=== PATIENT | female | born 1985 | race Caucasian/White ===

== ENCOUNTER 2018-08-26 10:37 | Inpatient (IN) | payer BC ==
[~2018-08-26] VITALS: Ht 175.3 cm; Wt 126.6 kg
[2018-08-26] VITALS (59 sets, daily range): BP systolic 104–137; BP diastolic 56–86
--- NOTE | 2018-08-26 10:45 | NUR ---
Arrived to unit via ambulation accompanied by s.o. Pt here for induction of labor due to elevated blood pressure. Wt obtained and to room 319. gowned and to bed. Oriented to room, call light and surroundings. plan of care reviewed with pt.
[2018-08-26] MEDS ORDERED: OXYTOCIN/NORMAL SALINE 500 ML IV SCH ×2 (11:38→20:50)
[2018-08-26] MEDS ORDERED: AMPICILLIN FOR IV USE 2,000 MG VIAL ONE (11:39)
[2018-08-26] MEDS ORDERED: WATER (STERILE) FOR INJECTION 20 ML ONE (11:40)
[2018-08-26] MEDS ORDERED: LIDOCAINE 1% INJ 20 ML 20 ML VIAL INJ PRN (11:45)
[2018-08-26 11:46] LABS: BASOPHILS # (AUTO) 0.1 10^3/uL (0.0-0.1); BASOPHILS % (AUTO) 0 % (0-10); EOSINOPHILS # (AUTO) 0.2 10^3/uL (0.0-0.3); EOSINOPHILS % (AUTO) 2 % (0-10); HEMATOCRIT 34 % (35-52); HEMOGLOBIN 10.5 G/DL (11.5-16.0); LYMPHOCYTES % (AUTO) 21 % (12-44); MEAN CORPUSCULAR HEMOGLOBIN 22 PG (25-34); MEAN CORPUSCULAR HGB CONC 31 G/DL (32-36); MEAN CORPUSCULAR VOLUME 71 FL (80-99); MEAN PLATELET VOLUME 9.5 FL (7.4-10.4); MONOCYTES # (AUTO) 1.2 X 10^3 (0.0-1.0); MONOCYTES % (AUTO) 8 % (0-12); NEUTROPHILS % (AUTO) 69 % (42-75); PLATELET COUNT 440 10^3/uL (130-400); RED CELL DISTRIBUTION WIDTH 16.4 % (10.0-14.5); WHITE BLOOD COUNT 14.4 10^3/uL (4.3-11.0)
[2018-08-26] MEDS ORDERED: AMPICILLIN FOR IV USE 2,000 MG in WATER (STERILE) FOR INJECTION 14.8 ML IV ONE (12:00)
[2018-08-26] MEDS: D5 LR IV SOLUTION 1,000 ML IV SCH ×2 (12:06→16:35)
[2018-08-26 12:16] LABS: BAND NEUTROPHILS 0 %; BASOPHILS % (MANUAL) 0 %; EOSINOPHILS % (MANUAL) 1 %; LYMPHOCYTES % (MANUAL) 17 %; MONOCYTES % (MANUAL) 7 %; NEUTROPHILS % (MANUAL) 75 %
[2018-08-26 12:17] LABS: ANISOCYTOSIS SLIGHT; MICROCYTOSIS SLIGHT
[2018-08-26] MEDS ORDERED: fentaNYL INJECTION 100 MCG/2 ML AMP ONE ×2 (12:42→13:05)
--- NOTE | 2018-08-26 12:44 | NUR ---
Dr Mcelroy called and notified of pt request for something for relaxation prior to epidural placement. New order received.
[2018-08-26] MEDS ORDERED: fentaNYL INJECTION 100 MCG/2 ML AMP IVP ONE (12:45)
[2018-08-26] MEDS ORDERED: SUFENTA 0.6MCG/ML BUPIVA 0.125 100 ML ONE (12:57)
[2018-08-26] MEDS ORDERED: BUPIVACAINE 0.25% 30 ML (SENSORCAINE) VIAL ONE (13:04)
[2018-08-26] MEDS ORDERED: LACTATED RINGERS 1,000 ML IV ONE (13:52)
[2018-08-26] MEDS ORDERED: NALOXONE 0.4 MG/ML 1 ML (NARCAN) VIAL IV PRN (14:00)
[2018-08-26] MEDS ORDERED: CATHETER FLUSH 10 ML SYR IV SCH ×2 (14:00→22:00)
[2018-08-26] MEDS ORDERED: EPIDURAL (SUFENTA 0.6MCG/ML BUPIVA 0.125%) 100 ML BAG EPI SCH (14:00)
[2018-08-26] MEDS ORDERED: diphenhydrAMINE 50 MG/ML INJ (BENADRYL) IV PRN (14:00)
[2018-08-26] MEDS ORDERED: CATHETER FLUSH 10 ML SYR IV PRN (14:00)
[2018-08-26] MEDS ORDERED: ONDANSETRON 4 MG/2 ML (SDV) Z0FRAN IV PRN (14:00)
[2018-08-26] MEDS ORDERED: AMPICILLIN FOR IV USE 1,000 MG in WATER (STERILE) FOR INJECTION 7.4 ML IV SCH (16:00)
[2018-08-26] MEDS ORDERED: LIDOCAINE/EPI 2% 1:200,00 (XYLOCAINE) 10 ML VIAL ONE (19:52)
[2018-08-26] MEDS ORDERED: LIDOCAINE 1% INJ 20 ML 20 ML VIAL ONE ×2 (20:04)
--- NOTE | 2018-08-26 20:45 | History & Physical-OB ---
OB - Chief Complaint & HPI Date/Time Date of Admission: Date of Admission: Aug 26, 2018 at 10:37 Date seen by a Provider: Aug 26, 2018 Time Seen by a Provider: 12:30 Chief Complaint/History OB-Reason for Admission/Chief: Medical Complication Hx : 4 Hx Para: 2 Expected Date of Delivery: Sep 01, 2018 Gestational Age in Weeks: 39 Gestational Age in Days: 1 Indication for induction: other (Gestational Hypertension) Admission Nurse Assessment Rev: Yes Allergies and Home Medications Allergies Coded Allergies: No Known Drug Allergies (Unverified , 08/26/18) Patient Home Medication List Home Medication List Reviewed: Yes OB - History Hx of Present Care: Yes Ultrasounds: Normal mid trimester US Obstetrical Complications: Gestational Hypertension Medical Complications: None Information Induced Hypertension: No Maternal Gestational Diabetes: No Hemorrhage: No Obstetrical History Hx : 4 Hx Para: 2 Hx # Term Pregnancies: 0 Hx # Pregnancies: 0 Number of Living Children: 2 Hx Termination: No Hx Total # of Abortions (Spona: 0 Hx Multiple Gestation: No Hx Ectopic : No Hx Stillbirth: No Hx Complication: No Hx Induced Hypertens: No Hx Maternal Gestational Diabet: No Delivery History Adverse Rxn to Tranfusion: No Patient Past Medical History Noncontributory Noncontributory Social History/Family History HIV/AIDS: No Recent Infectious Disease Expo: No Sexually Transmitted Disease: No Alcohol Use: Denies Use Recreational Drug Use: No Smoking Cessation: Never smoker 2nd Hand Smoke Exposure: No Immunizations Hepatitis A: Yes Hepatitis B: Yes OB - Admission Exam Physical Exam Vitals: Vital Signs 08/26/18 08/26/18 08/26/18 08/26/18 16:30 17:00 17:15 19:00 Temp 98.7 Pulse 116 Resp 18 B/P (MAP) 109/69 (82) Pulse Ox 100 O2 Delivery Room Air O2 Flow Rate 15.00 HEENT: NCAT Heart: Rhythm Normal Lungs: Clear Abdomen: Gravid Extremities: Edema Reflexes: Normal Cervical Dilatation: 1cm Effacement: 25% Station: -3 Membranes: Intact Heart Rate: 140's Accelerations: Accelerations Present Decelerations: No Decelerations Records Management Manager Variability: Average (6-25) Contractions on Admission: 6-10 Minutes Apart Intensity: Mild Michael Scoring Tool (Modified) Dilation (cm): 1-2cm (1) Effacement (%): 0-30% (0) Descent/Station: -3 (0) Cervix Consistency: Firm (0) Cervix Position: Posterior (0) Add 1 point for: Pre-eclampsia (1), Each previous vaginal delivery (1) Michael Score: 4 Labs Laboratory Tests Test 08/26/18 11:25 Range/Units White Blood Count 14.4 H 4.3-11.0 10^3/uL Red Blood Count 4.78 4.35-5.85 10^6/uL Hemoglobin 10.5 L 11.5-16.0 G/DL Hematocrit 34 L 35-52 % Mean Corpuscular Volume 71 L 80-99 FL Mean Corpuscular Hemoglobin 22 L 25-34 PG Mean Corpuscular Hemoglobin Concent 31 L 32-36 G/DL Red Cell Distribution Width 16.4 H 10.0-14.5 % Platelet Count 440 H 130-400 10^3/uL Mean Platelet Volume 9.5 7.4-10.4 FL Neutrophils (%) (Auto) 69 42-75 % Lymphocytes (%) (Auto) 21 12-44 % Monocytes (%) (Auto) 8 0-12 % Eosinophils (%) (Auto) 2 0-10 % Basophils (%) (Auto) 0 0-10 % Neutrophils # (Auto) 10.0 H 1.8-7.8 X 10^3 Lymphocytes # (Auto) 3.0 1.0-4.0 X 10^3 Monocytes # (Auto) 1.2 H 0.0-1.0 X 10^3 Eosinophils # (Auto) 0.2 0.0-0.3 10^3/uL Basophils # (Auto) 0.1 0.0-0.1 10^3/uL Neutrophils % (Manual) 75 % Lymphocytes % (Manual) 17 % Monocytes % (Manual) 7 % Eosinophils % (Manual) 1 % Basophils % (Manual) 0 % Band Neutrophils 0 % Anisocytosis SLIGHT Microcytosis SLIGHT OB - Assessment/Plan/Diagnosis Assessment Assessment: other (Intrauterine at 39 1/7 weeks 2. Gestational Hypertension) Admission Dx Intrauterine at 39 1/7 weeks 2. Gestational Hypertension Admission Status: Inpatient Order (span 2 midnights) Reason for Inpatient Admission: Induction of labor with expectant vaginal delivery Plan Plan: Induction Induction Method: per Pitocin Protocol Discharge Diagnosis Diagnosis: Intrauterine at 39 1/7 weeks 2. Gestational Hypertension TIKA CARBONE DO Aug 26, 2018 20:45
--- NOTE | 2018-08-26 20:50 | OB Labor & Delivery Record ---
Vag Delivery Note Vag Delivery Note Date of Delivery: 08/26/18 Preoperative Diagnosis: Meseret Funes is a (32 /Para 4 / 2,Gestational Age (wks)39with [gestational hypertension] Postoperative Diagnosis: Same Surgeon: TIKA CARBONE Wrapper Hands Sprayer: [None] Anesthesia: [Epidural and Pudendal Block] Delivery Type: [Normal Spontaneous Vaginal Delivery ] Findings: [] Viable [male] infant, apgars [9,9], weight [9 pound 8 ounces] Lacerations: First degree perineal laceration, very small, hemostatic, not repaired Intact placenta with 3 vessel cord. No nuchal cord, body cord or shoulder dystocia Cytotec 800 mcg placed for hemorrhage prophylaxis Estimated Blood Loss: [300] ml Complications: None Condition: Stable Description of Procedure: The patient is a 32 year old female who presented [for Pitocin Induction of Labor secondary to Gestational Hypertension]. She was admitted and informed consent was obtained. Her labor course was unremarkable. She progressed to complete dilatation and began to push. She was then set up for delivery. The infant's head was delivered atraumatically in the [SEBASTIÁN] position. The shoulders and remainder of the 's body were then delivered without difficulty. Nuchal cord was noted and manually reduced. Upon delivery, the head was held below the level of the perineum and the mouth and nares were bulb suctioned. The cord was doubly clamped and cut and the was handed off to the pediatric staff. An intact placenta with 3-vessel cord delivered via [place] and there was found to be minimal bleeding.~ Vigorous fundal massage was performed and the fundus was found to be firm. IV oxytocin was given. Examination of the vagina and perineum revealed a [first degree] laceration not repaire. Following the inspection, sponge, instrument and needle counts were correct. Mom and baby were both in stable condition in the labor suite. Vitals - Labs Vital Signs - I&O Vital Signs Date Time Temp Pulse Resp B/P (MAP) Pulse Ox O2 Delivery O2 Flow Rate FiO2 08/26/18 19:00 116 18 109/69 (82) Room Air 08/26/18 18:45 129 18 116/71 (86) Room Air 08/26/18 18:30 126 18 114/68 (83) Room Air 08/26/18 18:15 113 18 121/71 (88) Room Air 08/26/18 18:00 110 18 114/57 (76) Room Air 08/26/18 17:45 110 18 111/59 (76) Room Air 08/26/18 17:30 105 18 114/59 (77) Room Air 08/26/18 17:15 98.7 106 18 122/70 (87) Room Air 08/26/18 17:00 97 18 122/69 (86) 100 Room Air 08/26/18 16:45 100 18 121/72 (88) 100 Room Air 08/26/18 16:30 93 18 122/67 (85) 100 Non Rebreather 15.00 08/26/18 16:15 97 18 131/74 (93) 100 Non Rebreather 15.00 08/26/18 16:00 116 18 118/74 (89) 100 Room Air 08/26/18 15:45 113 18 120/72 (88) 100 Room Air 08/26/18 15:30 109 18 105/62 (76) 100 Room Air 08/26/18 15:15 98.2 109 18 104/56 (72) 100 Room Air 08/26/18 15:00 106 18 109/65 (80) 100 Room Air 08/26/18 14:45 115 18 111/70 (84) 100 Room Air 08/26/18 14:42 127 18 137/65 (89) 100 Room Air 08/26/18 14:37 106 18 124/62 (82) 100 Room Air 08/26/18 14:30 102 18 123/74 (90) 100 Room Air 08/26/18 14:27 104 18 116/68 (84) 100 Room Air 08/26/18 14:24 98 18 119/72 (88) 100 Room Air 08/26/18 14:21 104 18 123/75 (91) 100 Room Air 08/26/18 14:18 105 18 122/74 (90) 100 Room Air 08/26/18 14:15 98 18 113/71 (85) 100 Room Air 08/26/18 14:12 99 18 119/74 (89) 100 Room Air 08/26/18 14:09 103 18 107/74 (85) 100 Room Air 08/26/18 14:06 109 18 121/75 (90) 100 Room Air 7/22/19 14:03 106 18 120/76 (91) 100 Room Air 08/26/18 14:00 103 18 111/72 (85) 100 Room Air 08/26/18 13:57 96 18 106/69 (81) 99 Room Air 08/26/18 13:54 111 109/63 (78) 100 Room Air 08/26/18 13:51 125 18 117/57 (77) 99 Room Air 08/26/18 13:48 126 18 112/61 (78) 99 Room Air 08/26/18 13:45 130 18 119/72 (88) 99 Room Air 08/26/18 13:40 126 18 123/76 (92) 99 Room Air 08/26/18 13:36 120 18 113/74 (87) 99 Room Air 08/26/18 13:33 114 18 133/86 (102) 99 Room Air 08/26/18 13:30 98.4 111 18 128/80 (96) 99 Room Air 08/26/18 13:15 Room Air 08/26/18 13:00 101 18 129/80 (96) Room Air 08/26/18 12:45 Room Air 08/26/18 12:30 107 121/76 (91) Room Air 08/26/18 12:20 114 18 130/83 (99) Room Air 08/26/18 11:10 98.7 117 20 122/85 (97) Room Air Labs Laboratory Tests 08/26/18 11:25: White Blood Count 14.4H, Red Blood Count 4.78, Hemoglobin 10.5L, Hematocrit 34L, Mean Corpuscular Volume 71L, Mean Corpuscular Hemoglobin 22L, Mean Corpuscular Hemoglobin Concent 31L, Red Cell Distribution Width 16.4H, Platelet Count 440H, Mean Platelet Volume 9.5, Neutrophils (%) (Auto) 69, Lymphocytes (%) (Auto) 21, Monocytes (%) (Auto) 8, Eosinophils (%) (Auto) 2, Basophils (%) (Auto) 0, Neutrophils # (Auto) 10.0H, Lymphocytes # (Auto) 3.0, Monocytes # (Auto) 1.2H, Eosinophils # (Auto) 0.2, Basophils # (Auto) 0.1, Neutrophils % (Manual) 75, Lymphocytes % (Manual) 17, Monocytes % (Manual) 7, Eosinophils % (Manual) 1, Basophils % (Manual) 0, Band Neutrophils 0, Anisocytosis SLIGHT, Microcytosis SLIGHT TIKA CARBONE DO Aug 26, 2018 20:50
[2018-08-26] MEDS ORDERED: IBUPROFEN 800 MG (MOTRIN) TAB PO ONE (20:53)
[2018-08-26] MEDS ORDERED: DIBUCAINE (NUPERCAINAL) 1% OINT 30 GM TOP PRN (21:00)
[2018-08-26] MEDS ORDERED: WITCH HAZEL(TUCKS) 40 EA JAR TOP PRN (21:00)
[2018-08-26] MEDS: IBUPROFEN 800 MG (MOTRIN) TAB PO SCH (21:00)
[2018-08-26] MEDS ORDERED: MEASLES,MUMPS,RUBELLA 1 EA INJ SQ ONE (21:00)
[2018-08-26] MEDS ORDERED: TETANUS,DIPTH,PERTUSS P/F (BOOSTRIX) 0.5 ML VIAL IM ONE (21:00)
[2018-08-26] MEDS ORDERED: BENZOCAINE/MENTHOL (DERMOPLAST) 56 ML CAN TP PRN (21:00)
--- NOTE | 2018-08-26 22:30 | NUR ---
Pt able to hold legs above bed. Informed pt to dangle feet at bedside. Pt assisted to standing position, steady on feet. Ambulating to labor room bathroom at time with this RN at side. [facility]icare performed with assistance from this RN. New v-pad, underwear, and gown given. Pt assisted into wheelchair. Performed assessment on infant while pt and FOB sat at warmer side. Infant placed in open crib. Pt, FOB, and infant to room at time with this RN at side. Pt oriented to new room. Pt denies any questions or concerns at time.
[2018-08-27 00:15] VITALS: BP 125/77
[2018-08-27] MEDS: DOCUSATE SODIUM 100 MG (COLACE) CAP PO SCH ×3 (00:28→20:41)
[2018-08-27] MEDS: ACETAMINOPHEN 500 MG TAB (TYLENOL) PO SCH ×4 (00:29→15:24)
[2018-08-27] MEDS: IBUPROFEN 800 MG (MOTRIN) TAB PO SCH ×5 (02:57→23:31)
[2018-08-27 04:10] VITALS: BP 118/74
[2018-08-27 05:18] LABS: HEMATOCRIT 30 % (35-52); HEMOGLOBIN 9.3 G/DL (11.5-16.0); MEAN CORPUSCULAR HEMOGLOBIN 22 PG (25-34); MEAN CORPUSCULAR HGB CONC 31 G/DL (32-36); MEAN CORPUSCULAR VOLUME 72 FL (80-99); PLATELET COUNT 361 10^3/uL (130-400); RED CELL DISTRIBUTION WIDTH 15.9 % (10.0-14.5); WHITE BLOOD COUNT 16.1 10^3/uL (4.3-11.0)
[2018-08-27 05:19] LABS: BASOPHILS % (AUTO) 0 % (0-10); EOSINOPHILS # (AUTO) 0.1 10^3/uL (0.0-0.3); EOSINOPHILS % (AUTO) 1 % (0-10); LYMPHOCYTES # (AUTO) 2.9 X 10^3 (1.0-4.0); LYMPHOCYTES % (AUTO) 18 % (12-44); MEAN PLATELET VOLUME 9.6 FL (7.4-10.4); MONOCYTES # (AUTO) 1.3 X 10^3 (0.0-1.0); MONOCYTES % (AUTO) 8 % (0-12); NEUTROPHILS # (AUTO) 11.7 X 10^3 (1.8-7.8); NEUTROPHILS % (AUTO) 73 % (42-75)
--- NOTE | 2018-08-27 06:38 | Postpartum Progress Note ---
Note Note Day # [1] Subjective: Patient is without complaints. Ambulating, voiding. Tolerating a regular diet without nausea or vomiting. Normal lochia. Pain is well controlled with oral pain medications. [Breast] feeding. Objective: [Vital Signs stable] Physical Exam: General - Alert and oriented, no apparent distress Abdomen - Soft, appropriately tender to palpation, non-distended, fundus firm at umbilicus Extremities - +1 edema in lower extremities, negative Arnaldo's bilaterally Assessment: [] post- day # [1], status post [] vaginal delivery. Recovering well, hemodynamically stable Plan: Routine care. Encourage breast feeding. Encourage ambulation. Ferrous sulfate supplementation. Plan for discharge [tomorrow if MsDominique Stepps remain stable] Vitals - Labs Vital Signs - I&O Vital Signs Date Time Temp Pulse Resp B/P (MAP) Pulse Ox O2 Delivery O2 Flow Rate FiO2 08/27/18 04:10 98.4 116 18 118/74 (89) 98 08/27/18 00:15 98.4 123 18 125/77 (93) 98 08/26/18 22:18 110 18 120/66 (84) Room Air 08/26/18 22:03 109 18 120/58 (78) Room Air 08/26/18 21:49 98.8 108 18 118/59 (78) Room Air 08/26/18 21:34 121 18 123/58 (79) Room Air 08/26/18 21:18 99.0 113 18 130/65 (86) Room Air 08/26/18 21:03 115 18 123/61 (81) Room Air 08/26/18 20:51 99.0 118 18 119/57 (77) Room Air 08/26/18 20:34 98.8 120 18 120/56 (77) Room Air 08/26/18 20:26 137 18 121/79 (93) Room Air 08/26/18 20:15 112 18 114/63 (80) Room Air 08/26/18 20:00 18 Room Air 08/26/18 19:58 116 115/72 (86) 08/26/18 19:54 111 108/57 (74) 08/26/18 19:47 112 107/69 (82) 08/26/18 19:45 127 18 111/77 (88) Room Air 08/26/18 19:30 117 18 107/65 (79) Room Air 08/26/18 19:15 Room Air 08/26/18 19:00 116 18 109/69 (82) Room Air 08/26/18 18:45 129 18 116/71 (86) Room Air 08/26/18 18:30 126 18 114/68 (83) Room Air 08/26/18 18:15 113 18 121/71 (88) Room Air 08/26/18 18:00 110 18 114/57 (76) Room Air 08/26/18 17:45 110 18 111/59 (76) Room Air 08/26/18 17:30 105 18 114/59 (77) Room Air 08/26/18 17:15 98.7 106 18 122/70 (87) Room Air 08/26/18 17:00 97 18 122/69 (86) 100 Room Air 08/26/18 16:45 100 18 121/72 (88) 100 Room Air 08/26/18 16:30 93 18 122/67 (85) 100 Non Rebreather 15.00 08/26/18 16:15 97 18 131/74 (93) 100 Non Rebreather 15.00 08/26/18 16:00 116 18 118/74 (89) 100 Room Air 08/26/18 15:45 113 18 120/72 (88) 100 Room Air 08/26/18 15:30 109 18 105/62 (76) 100 Room Air 08/26/18 15:15 98.2 109 18 104/56 (72) 100 Room Air 08/26/18 15:00 106 18 109/65 (80) 100 Room Air 08/26/18 14:45 115 18 111/70 (84) 100 Room Air 08/26/18 14:42 127 18 137/65 (89) 100 Room Air 08/26/18 14:37 106 18 124/62 (82) 100 Room Air 08/26/18 14:30 102 18 123/74 (90) 100 Room Air 08/26/18 14:27 104 18 116/68 (84) 100 Room Air 08/26/18 14:24 98 18 119/72 (88) 100 Room Air 08/26/18 14:21 104 18 123/75 (91) 100 Room Air 08/26/18 14:18 105 18 122/74 (90) 100 Room Air 08/26/18 14:15 98 18 113/71 (85) 100 Room Air 08/26/18 14:12 99 18 119/74 (89) 100 Room Air 08/26/18 14:09 103 18 107/74 (85) 100 Room Air 08/26/18 14:06 109 18 121/75 (90) 100 Room Air 08/26/18 14:03 106 18 120/76 (91) 100 Room Air 08/26/18 14:00 103 18 111/72 (85) 100 Room Air 08/26/18 13:57 96 18 106/69 (81) 99 Room Air 08/26/18 13:54 111 109/63 (78) 100 Room Air 08/26/18 13:51 125 18 117/57 (77) 99 Room Air 08/26/18 13:48 126 18 112/61 (78) 99 Room Air 08/26/18 13:45 130 18 119/72 (88) 99 Room Air 08/26/18 13:40 126 18 123/76 (92) 99 Room Air 08/26/18 13:36 120 18 113/74 (87) 99 Room Air 08/26/18 13:33 114 18 133/86 (102) 99 Room Air 08/26/18 13:30 98.4 111 18 128/80 (96) 99 Room Air 08/26/18 13:15 Room Air 08/26/18 13:00 101 18 129/80 (96) Room Air 08/26/18 12:45 Room Air 08/26/18 12:30 107 121/76 (91) Room Air 08/26/18 12:20 114 18 130/83 (99) Room Air 08/26/18 11:10 98.7 117 20 122/85 (97) Room Air I & O 08/27/18 07:00 Intake Total 3514.8 ml Balance 3514.8 ml Labs Laboratory Tests 08/26/18 11:25: White Blood Count 14.4H, Red Blood Count 4.78, Hemoglobin 10.5L, Hematocrit 34L, Mean Corpuscular Volume 71L, Mean Corpuscular Hemoglobin 22L, Mean Corpuscular H emoglobin Concent 31L, Red Cell Distribution Width 16.4H, Platelet Count 440H, Mean Platelet Volume 9.5, Neutrophils (%) (Auto) 69, Lymphocytes (%) (Auto) 21, Monocytes (%) (Auto) 8, Eosinophils (%) (Auto) 2, Basophils (%) (Auto) 0, Neutrophils # (Auto) 10.0H, Lymphocytes # (Auto) 3.0, Monocytes # (Auto) 1.2H, Eosinophils # (Auto) 0.2, Basophils # (Auto) 0.1, Neutrophils % (Manual) 75, Lymphocytes % (Manual) 17, Monocytes % (Manual) 7, Eosinophils % (Manual) 1, Basophils % (Manual) 0, Band Neutrophils 0, Anisocytosis SLIGHT, Microcytosis [facility] 08/27/18 05:10: White Blood Count 16.1H, Red Blood Count 4.21L, Hemoglobin 9.3L, Hematocrit 30L, Mean Corpuscular Volume 72L, Mean Corpuscular Hemoglobin 22L, Mean Corpuscular Hemoglobin Concent 31L, Red Cell Distribution Width 15.9H, Platelet Count 361, Mean Platelet Volume 9.6, Neutrophils (%) (Auto) 73, Lymphocytes (%) (Auto) 18, Monocytes (%) (Auto) 8, Eosinophils (%) (Auto) 1, Basophils (%) (Auto) 0, Neutrophils # (Auto) 11.7H, Lymphocytes # (Auto) 2.9, Monocytes # (Auto) 1.3H, Eosinophils # (Auto) 0.1, Basophils # (Auto) 0.0 TIKA CARBONE DO Aug 27, 2018 06:38
[2018-08-27 09:09] VITALS: BP 107/60
[2018-08-27] MEDS: PRENATAL VITAMIN 1 EA TAB PO SCH (09:11)
[2018-08-27 12:21] VITALS: BP 118/70
--- NOTE | 2018-08-27 12:42 | Anesthesia-Regional Post-Op ---
Regional Patient Condition Mental Status: Alert, Oriented x3 Circulation: Same as Pre-Op Headache: Absent Sensation: Full Recovery Motor Block: Absent Post Op Complications Complications None Follow Up Care/Instructions Patient Instructions None needed. Anesthesia/Patient Condition Patient is doing well, no complaints, stable vital signs, no apparent adverse anesthesia problems. Her epidural was not as effective with her lower contractions as labor progressed. PCEA boluses were used with minimal help. Pt stated Dr Mcelroy injected additional local for delivery which was helpful. MARCK LAN DO Aug 27, 2018 12:42
[2018-08-27 18:17] VITALS: BP 122/67
[2018-08-27 23:30] VITALS: BP 104/58
[2018-08-28 06:20] VITALS: BP 122/67
[2018-08-28] MEDS: PRENATAL VITAMIN 1 EA TAB PO SCH (06:24)
[2018-08-28 07:40] VITALS: BP 138/73
[2018-08-28] MEDS: IBUPROFEN 800 MG (MOTRIN) TAB PO SCH (07:41)
[2018-08-28] MEDS: DOCUSATE SODIUM 100 MG (COLACE) CAP PO SCH (07:42)
--- NOTE | 2018-08-28 08:55 | Discharge Summary ---
Diagnosis/Chief Complaint Date of Admission Aug 26, 2018 at 10:37 Date of Discharge August 28, 2018 Discharge Date: Aug 28, 2018 Discharge Time: 08:55 Admission Diagnosis Admission Diagnosis Intrauterine at 39 weeks 2. Gestational Hypertension Discharge Diagnosis Intrauterine at 39 weeks--delivered 2. Gestational Hypertension Reason Hospital Visit Pitocin Induction of Labor secondary to Gestational Hypertension Discharge Summary Hospital Course Hospital Course Ms. Funes was admitted for induction of labor secondary to Gestational Hypertension. She progressed to complete, delivered a healthy viable male without complications She was placed on oral pain medication and other comfort measures were instituted. Day #1 was unremarkable. Day #2 she was doing quite well, physical examination unremarkable, vital signs stable. We will discharge Ms. Funes to home with instructions, prescriptions, and a follow up appointment. Labs Laboratory Tests 08/26/18 11:25: White Blood Count 14.4H, Hemoglobin 10.5L, Hematocrit 34L, Mean Corpuscular Volume 71L, Mean Corpuscular Hemoglobin 22L, Mean Corpuscular Hemoglobin Concent 31L, Red Cell Distribution Width 16.4H, Platelet Count 440H, Neutrophils # (Auto ) 10.0H, Monocytes # (Auto) 1.2H 08/27/18 05:10: White Blood Count 16.1H, Hemoglobin 9.3L, Hematocrit 30L, Mean Corpuscular Volume 72L, Mean Corpuscular Hemoglobin 22L, Mean Corpuscular Hemoglobin Concent 31L, Red Cell Distribution Width 15.9H, Neutrophils # (Auto) 11.7H, Monocytes # (Auto) 1.3H, Red Blood Count 4.21L Procedures None. Discharge Physical Examination Allergies: Coded Allergies: No Known Drug Allergies (Unverified , 08/26/18) Vitals & I&Os Vital Signs Date Time Temp Pulse Resp B/P (MAP) Pulse Ox O2 Delivery O2 Flow Rate FiO2 08/28/18 06:20 98.3 96 18 122/67 (85) 98 Room Air 08/26/18 16:30 15.00 General Appearance: Alert, Oriented X3, Cooperative HEENT: Atraumatic Respiratory: Clear to Auscultation, Normal Air Movement Cardiovascular: Regular Rate, No Murmurs Abdominal: Normal Bowel Sounds, No Tenderness Extremities: No Clubbing, No Cyanosis Skin: No Rashes Neuro: Normal Gait, Normal Speech, Cranial Nerves 3-12 NL Psych/Mental Status: Mental Status NL Discharge Home Medications Reviewed and agree with Discharge Medication list on patient's Discharge Instruction sheet Instructions to Patient/Family Please see electronic discharge instructions given to patient. Clinical Quality Measures DVT/VTE Risk/Contraindication: Risk Factor Score Per Nursin RFS Level Per Nursing on Admit: 1=Low/No VTE PPX TIKA CARBONE DO Aug 28, 2018 08:55
[2018-08-28] MEDS ORDERED: OXC5T PO (08:57)
[2018-08-28] MEDS ORDERED: ACET-77 PO (08:57)
[2018-08-28] MEDS ORDERED: DOCU100C37 PO (08:57)
[2018-08-28] MEDS ORDERED: IBUP-1780 PO (08:57)
[2018-08-28] MEDS ORDERED: TETANUS,DIPTH,PERTUSS P/F (BOOSTRIX) 0.5 ML VIAL IM ONE (10:32)
--- NOTE | 2018-08-28 12:10 | NUR ---
Home instructions given and pt verbalized understanding. To exit with baby in car seat. Accompanied by this staff nurse midwife and father.
== END 2018-08-28 12:10 | disposition home or self-care (01) | DRG 807 ==
LOC: LDRP 10:37
PROVIDERS: ADMIT Obstetrics & Gynecology; ATTEND Obstetrics & Gynecology
PROC: 10E0XZZ Delivery of Products of Conception, External Approach (ICD-10-PCS; principal; 2018-08-26)
PROC: 3E033VJ Introduction of Other Hormone into Peripheral Vein, Percutaneous Approach (ICD-10-PCS; 2018-08-26)
PROC: 0HQ9XZZ Repair Perineum Skin, External Approach (ICD-10-PCS; 2018-08-26)
DX: O13.4 Gestational [pregnancy-induced] hypertension without significant proteinuria, complicating childbirth (principal); O70.0 First degree perineal laceration during delivery; O69.81X0 Labor and delivery complicated by cord around neck, without compression, not applicable or unspecified; Z37.0 Single live birth; Z3A.39 39 weeks gestation of pregnancy; Z23 Encounter for immunization
CPT/HCPCS: 36415; 85007; 85025; 85027; 86850; 86900; 86901; 90715

== ENCOUNTER 2018-08-30 17:23 | Emergency (ER) | payer BC ==
[~2018-08-30] VITALS: Ht 175.3 cm; Wt 113.4 kg
[~2018-08-30 17:23] MED LIST: ACET-77 PO; DOCU100C37 PO; IBUP-1780 PO; OXC5T PO
[2018-08-30] MEDS ORDERED: NS IV 1000 ML 1,000 ML ONE (17:41)
[2018-08-30] MEDS ORDERED: NS IV 1000 ML 1,000 ML IV SCH (17:45)
--- NOTE | 2018-08-30 18:02 | ED General ---
General Chief Complaint: Fever-Adult/Adol Stated Complaint: FEVER Nursing Triage Note: PT HAD A BABY 4 DAYS AGO AND NOW HAS FEVER. Nursing Sepsis Screen: Possible Sepsis Risk Source of Information: Patient Exam Limitations: No Limitations History of Present Illness Date Seen by Provider: Aug 30, 2018 Time Seen by Provider: 17:45 Initial Comments Patient is a 32-year-old, G3, P3, four-day female who presents with fever of 101 yesterday, back pain, intermittent pelvic cramping and shortness of breath. She was full-term induced and given antibiotics during labor due to group B+ status. Patient denies complications or fever during . Starting yesterday, the patient developed fever, body aches, back pain with shortness of breath and feelings of being unable to take a deep breath. No cough, sore throat, breast redness or induration. Patient currently nursing. Reports pelvic cramping and back pain. States vaginal bleeding with enough to soak a pad every 3-4 hours with 4-5 pads changes per day. This has not increased since time of delivery. No other acute symptoms or complaints. Patient contacted her [employer] who instructed the patient to come to the ED for additional testing. Timing/Duration: 3-4 Days Severity: Moderate Associated Systoms: Denies Symptoms, Fever/Chills, Shortness of Air Allergies and Home Medications Allergies Coded Allergies: No Known Drug Allergies (Unverified , 08/26/18) Home Medications Acetaminophen 500 Mg Tablet, 1,000 MG PO Q6HR Prescribed by: TIKA E DELICIAS on 08/28/18 0857 Docusate Sodium 100 Mg Capsule, 100 MG PO BID Prescribed by: TIKA E DELICIAS on 08/28/18 0857 Ibuprofen 800 Mg Tablet, 800 MG PO Q8HR Prescribed by: TIKA E SEALS on 08/28/18 0857 Oxycodone Hcl 5 Mg Tab, 5 MG PO Q6H PRN for PAIN-SEVERE Prescribed by: TIKA E DELICIAS on 08/28/18 0857 Patient Home Medication List Home Medication List Reviewed: Yes Review of Systems Review of Systems Constitutional: see HPI EENTM: see HPI Respiratory: see HPI Cardiovascular: see HPI Gastrointestinal: see HPI Genitourinary: see HPI Expected Date of Delivery: Aug 26, 2018 Musculoskeletal: see HPI Skin: see HPI Psychiatric/Neurological: See HPI Hematologic/Lymphatic: See HPI, Anemia All Other Systems Reviewed Negative Unless Noted: Yes Past Wdciwci-Nuupnw-Flxgch Hx Past Med/Social Hx: Reviewed Nursing Past Med/Soc Hx Patient Social History Alcohol Use: Denies Use Recreational Drug Use: No Smoking Status: Never a Smoker 2nd Hand Smoke Exposure: No Recent Foreign Travel: No Contact w/Someone Who Travel: No Recent Infectious Disease Expo: No Recent Hopitalizations: No Physical Abuse: No Sexual Abuse: No Mistreated: No Fear: No Immunizations Up To Date PED Vaccines UTD: Yes Seasonal Allergies Seasonal Allergies: No Past Medical History Surgeries: Yes (knee, lazer surgery) Respiratory: No Cardiac: No Neurological: No : No Expected Date of Delivery: Aug 26, 2018 Hx : 3 Hx Para: 3 Female Reproductive Disorders: Denies Sexually Transmitted Disease: No HIV/AIDS: No Genitourinary: No Gastrointestinal: No Musculoskeletal: Yes (bulging discs/MRI 2011) Endocrine: No HEENT: No Cancer: No Psychosocial: No Integumentary: No Blood Disorders: No Adverse Reaction/Blood Tranf: No Physical Exam Vital Signs Vital Signs - First Documented 08/30/18 17:37 Temp 98.7 Pulse 100 Resp 18 B/P (MAP) 151/98 (115) Pulse Ox 97 O2 Delivery Room Air Capillary Refill : Less Than 3 Seconds Height, Weight, BMI Height: 5'9.00" Weight: 250lbs. 0.0oz. [id number]; 41.2 BMI Method:Stated General Appearance: No Apparent Distress, WD/WN, Anxious Eyes: Bilateral Eye Normal Inspection, Bilateral Eye PERRL, Bilateral Eye Abnormal EOM HEENT: PERRL/EOMI, TMs Normal Neck: Supple Respiratory: Chest Non Tender, Lungs Clear, Normal Breath Sounds Cardiovascular: Regular Rate, Rhythm, No Edema Back: Normal Inspection, No CVA Tenderness Neurologic/Psychiatric: Alert, Oriented x3 Skin: Normal Color, Warm/Dry Focused Exam Sepsis Stage: Ruled Out Progress/Results/Core Measures Suspected Sepsis Recent Fever Within 48 Hours: Yes Infection Criteria Present: Suspected New Infection New/Unexplained Altered Menta: No Sepsis Screen: Possible Sepsis Risk SIRS Temperature:98.7 Pulse: 100 Respiratory Rate: 18 Laboratory Tests 08/30/18 18:03: White Blood Count 10.0 Blood Pressure 151 /98 Mean: 115 Laboratory Tests 08/30/18 18:03: Creatinine 0.61, Platelet Count 476H, Total Bilirubin 0.2 Results/Orders Lab Results Laboratory Tests Test 08/30/18 17:41 08/30/18 18:03 Range/Units Urine Color YELLOW Urine Clarity CLEAR Urine pH 6.5 5-9 Urine Specific [place] 1.015 L 1.016-1.022 Urine Protein NEGATIVE NEGATIVE Urine Glucose (UA) NEGATIVE NEGATIVE Urine Ketones NEGATIVE NEGATIVE Urine Nitrite NEGATIVE NEGATIVE Urine Bilirubin NEGATIVE NEGATIVE Urine Urobilinogen 0.2 NORMAL MG/DL Urine Leukocyte Esterase 1+ H NEGATIVE Urine RBC (Auto) 3+ H NEGATIVE Urine RBC >100 H /HPF Urine WBC 5-10 H /HPF Urine Squamous Epithelial Cells 10-25 H /HPF Urine Crystals NONE /LPF Urine Bacteria TRACE /HPF Urine Casts NONE /LPF Urine Mucus NEGATIVE /LPF Urine Culture Indicated YES White Blood Count 10.0 4.3-11.0 10^3/uL Red Blood Count 4.67 4.35-5.85 10^6/uL Hemoglobin 10.2 L 11.5-16.0 G/DL Hematocrit 34 L 35-52 % Mean Corpuscular Volume 73 L 80-99 FL Mean Corpuscular Hemoglobin 22 L 25-34 PG Mean Corpuscular Hemoglobin Concent 30 L 32-36 G/DL Red Cell Distribution Width 16.1 H 10.0-14.5 % Platelet Count 476 H 130-400 10^3/uL Mean Platelet Volume 9.3 7.4-10.4 FL Neutrophils (%) (Auto) 55 42-75 % Lymphocytes (%) (Auto) 33 12-44 % Monocytes (%) (Auto) 7 0-12 % Eosinophils (%) (Auto) 4 0-10 % Basophils (%) (Auto) 1 0-10 % Neutrophils # (Auto) 5.5 1.8-7.8 X 10^3 Lymphocytes # (Auto) 3.2 1.0-4.0 X 10^3 Monocytes # (Auto) 0.7 0.0-1.0 X 10^3 Eosinophils # (Auto) 0.4 H 0.0-0.3 10^3/uL Basophils # (Auto) 0.1 0.0-0.1 10^3/uL Sodium Level 141 135-145 MMOL/L Potassium Level 4.1 3.6-5.0 MMOL/L Chloride Level 101 98-107 MMOL/L Carbon Dioxide Level 22 21-32 MMOL/L Anion Gap 18 H 5-14 MMOL/L Blood Urea Nitrogen 9 7-18 MG/DL Creatinine 0.61 0.60-1.30 MG/DL Estimat Glomerular Filtration Rate > 60 BUN/Creatinine Ratio 15 Glucose Level 78 70-105 MG/DL Calcium Level 9.7 8.5-10.1 MG/DL Total Bilirubin 0.2 0.1-1.0 MG/DL Direct Bilirubin 0.2 0.0-0.3 MG/DL Indirect Bilirubin 0.0 MG/DL Aspartate Amino Transf (AST/SGOT) 75 H 5-34 U/L Alanine Aminotransferase (ALT/SGPT) 75 H 0-55 U/L Alkaline Phosphatase 92 40-136 U/L Pro-B-Type Natriuretic Peptide 284.1 H <75.0 PG/ML Total Protein 7.2 6.4-8.2 GM/DL Albumin 3.6 3.2-4.5 GM/DL My Orders Orders - CAS ASTUDILLO DO Cbc With Automated Diff (08/30/18 17:42) Basic Metabolic Panel (08/30/18 17:42) Blood Culture (08/30/18 17:42) Ns Iv 1000 Ml (Sodium Chloride 0.9%) (08/30/18 17:45) Ns Iv 1000 Ml (Sodium Chloride 0.9%) (08/30/18 17:41) Chest Pa/Lat (2 View) (08/30/18 17:46) Blood Culture (08/30/18 18:20) Urinalysis (08/30/18 18:32) Urine Culture (08/30/18 17:41) Iohexol Injection (Omnipaque 350 Mg/Ml 1 (08/30/18 19:00) Received Contrast (Hold Metformin- Contr (08/30/18 19:00) Sodium Chloride Flush (Catheter Flush Sy (08/30/18 19:00) Ns (Ivpb) (Sodium Chloride 0.9% Ivpb Bag (08/30/18 19:00) Probnp Fs (08/30/18 19:23) Liver Panel (08/30/18 19:23) Ct Angio Chest W (08/30/18 19:49) Furosemide Injection (Lasix Injection) (08/30/18 21:15) Labetalol Injection (Normodyne Injection (08/30/18 21:45) Medications Given in ED Current Medications Medications Dose Ordered Sig/Ethel Route Start Time Stop Time Status Last Admin Dose Admin Furosemide 40 mg ONCE ONCE IVP 08/30/18 21:15 08/30/18 21:16 DC 08/30/18 21:45 40 MG Iohexol 125 ml ONCE ONCE IV 08/30/18 19:00 08/30/18 19:01 DC 08/30/18 20:25 125 ML Sodium Chloride 100 ml ONCE ONCE IV 08/30/18 19:00 08/30/18 19:01 DC 08/30/18 20:25 100 ML Vital Signs/I&O 08/30/18 08/30/18 17:37 19:52 Temp 98.7 Pulse 100 85 Resp 18 18 B/P (MAP) 151/98 (115) 147/92 (110) Pulse Ox 97 99 O2 Delivery Room Air Room Air Capillary Refill : Less Than 3 Seconds Blood Pressure Mean: 115 Departure Communication (Admissions) EKG, lab and imaging reviewed. Patient noted to be HTN with 1+ edema. No MAGANA, mental status changes. No findings of PE or cardiomyopathy on CTA. No abdominal pain suggestive endometritis. Case discussed with Dr. Pablo who recommends discharging patient home with low-dose Ambien for the next 5-7 days. He will see her early next week in follow-up in the office. Patient instructed to dump breastmilk for the next 12 hours and check daily blood pressures. Return Impression Primary Impression: Dyspnea Additional Impressions: hypertension Sleep deficient Disposition: HOME, SELF-CARE Condition: Improved Departure-Patient Inst. Referrals: GAMALIEL MACHUCA MD (PCP/Family) Primary Care Physician Patient Instructions: High Blood Pressure (DC) Add. Discharge Instructions: Discard breastmilk for the next 12 hours and use formula for feeding in the interim Please go home and rest and check blood pressures daily. Take Ambien as needed for sleep follow-up with Dr. Pablo in the office early next week. Return to the ED if new or worsening symptoms All discharge instructions reviewed with patient and/or family. Voiced understanding. Scripts Zolpidem Tartrate (Ambien) 5 Mg Tablet 5 MG PO nightly for 7 Days, #7 TAB Prov: CAS ASTUDILLO DO 08/30/18 CAS ASTUDILLO DO Aug 30, 2018 18:02
[2018-08-30 18:11] LABS: HEMATOCRIT 34 % (35-52); HEMOGLOBIN 10.2 G/DL (11.5-16.0); MEAN CORPUSCULAR HEMOGLOBIN 22 PG (25-34); MEAN CORPUSCULAR HGB CONC 30 G/DL (32-36); MEAN CORPUSCULAR VOLUME 73 FL (80-99); PLATELET COUNT 476 10^3/uL (130-400); RED CELL DISTRIBUTION WIDTH 16.1 % (10.0-14.5)
[2018-08-30 18:12] LABS: BASOPHILS # (AUTO) 0.1 10^3/uL (0.0-0.1); BASOPHILS % (AUTO) 1 % (0-10); EOSINOPHILS # (AUTO) 0.4 10^3/uL (0.0-0.3); EOSINOPHILS % (AUTO) 4 % (0-10); LYMPHOCYTES # (AUTO) 3.2 X 10^3 (1.0-4.0); LYMPHOCYTES % (AUTO) 33 % (12-44); MEAN PLATELET VOLUME 9.3 FL (7.4-10.4); MONOCYTES # (AUTO) 0.7 X 10^3 (0.0-1.0); MONOCYTES % (AUTO) 7 % (0-12); NEUTROPHILS # (AUTO) 5.5 X 10^3 (1.8-7.8); NEUTROPHILS % (AUTO) 55 % (42-75)
--- NOTE | 2018-08-30 18:25 | Diagnostic Imaging Report ---
Clinical indication: Patient with fever x4 days. Exam: Chest x-ray PA and lateral views. Comparisons: None. Findings: Extrathoracic breast soft tissue causes opacities overlying both lung mcnair. Lungs/pleura: Lungs are clear. There is no pneumothorax. There is no pleural effusion. Mediastinum: Unremarkable. Pulmonary vasculature: Unremarkable. Heart: Unremarkable. Bones/extrathoracic soft tissue: Unremarkable. Impression: There is no radiographic evidence of acute cardiopulmonary process. Dictated by: Dictated on workstation # [id number]
[2018-08-30 18:31] LABS: BUN/CREATININE RATIO 15; CARBON DIOXIDE 22 MMOL/L (21-32); CHLORIDE 101 MMOL/L (98-107); CREATININE SERUM 0.61 MG/DL (0.60-1.30); GFR ESTIMATED > 60; POTASSIUM 4.1 MMOL/L (3.6-5.0); SODIUM 141 MMOL/L (135-145)
[2018-08-30 18:32] LABS: CALCIUM 9.7 MG/DL (8.5-10.1); GLUCOSE 78 MG/DL (70-105)
[2018-08-30 18:37] LABS: BACTERIA,URINE TRACE /HPF; BILIRUBIN,URINE NEGATIVE (NEGATIVE); CLARITY,URINE CLEAR; COLOR,URINE YELLOW; GLUCOSE, URINE (UA) NEGATIVE (NEGATIVE); KETONES,URINE NEGATIVE (NEGATIVE); LEUKOCYTE ESTERASE ,URINE 1+ (NEGATIVE); NITRITE,URINE NEGATIVE (NEGATIVE); PH,URINE 6.5 (5-9); PROTEIN,URINE NEGATIVE (NEGATIVE); RBC,URINE >100 /HPF; UROBILINOGEN,URINE 0.2 MG/DL (NORMAL)
[2018-08-30] MEDS ORDERED: HOLD METFORMIN - RECEIVED CONTRAST 20 ML VIAL IV SCH (19:00)
[2018-08-30] MEDS ORDERED: NS 100 ML (IVPB) BAG IV ONE (19:00)
[2018-08-30] MEDS ORDERED: CATHETER FLUSH 10 ML SYR IV PRN (19:00)
[2018-08-30] MEDS ORDERED: IOHEXOL 350 MG/ML 150 ML (OMNIPAQUE 350) VIAL IV ONE (19:00)
[2018-08-30 19:52] VITALS: BP 147/92
[2018-08-30 20:09] LABS: BILIRUBIN,DIRECT 0.2 MG/DL (0.0-0.3); BILIRUBIN,TOTAL 0.2 MG/DL (0.1-1.0)
[2018-08-30 20:10] LABS: ALBUMIN 3.6 GM/DL (3.2-4.5); TOTAL PROTEIN 7.2 GM/DL (6.4-8.2)
[2018-08-30] MEDS ORDERED: FUROSEMIDE 40 MG/4 ML INJ (LASIX) IVP ONE (21:15)
--- NOTE | 2018-08-30 21:22 | Diagnostic Imaging Report ---
PROCEDURE: CT angiography of the chest with contrast. TECHNIQUE: Multiple contiguous axial images were obtained through the chest after uneventful bolus administration of intravenous contrast. 3D reconstructed CTA MIP acquisitions were also performed. Auto Exposure Controls were utilized during the CT exam to meet ALARA standards for radiation dose reduction. INDICATION: chest tightness. FINDINGS: There are no intraluminal pulmonary arterial filling defects. The heart size is within normal limits and there are no findings to suggest failure or edema. No pneumonia, mass, adenopathy, effusion, or pneumothorax. No acute chest wall pathology. breast engorgement noted incidentally. No acute or suspect chest wall disease. The visualized upper abdomen is nonacute. IMPRESSION: Negative for PE or other acute abnormalities. Dictated by: Dictated on workstation # [id number]
[2018-08-30] MEDS ORDERED: LABETALOL HCL 20 MG/4 ML VIAL IV ONE (21:45)
[2018-08-30] MEDS ORDERED: ZOLP5TAB PO (22:04)
[2018-08-30 22:17] VITALS: BP 140/83
== END 2018-08-30 22:20 | disposition home or self-care (01) ==
LOC: EDUNIT# 17:23 → ER FS 17:24
DX: O16.5 Unspecified maternal hypertension, complicating the puerperium (principal); O99.89 Other specified diseases and conditions complicating pregnancy, childbirth and the puerperium; R06.00 Dyspnea, unspecified; Z72.820 Sleep deprivation
CPT/HCPCS: 36415; 71046; 71275; 80048; 80076; 81000; 83880; 85025; 87040; 87088; 96361; 96374; 96375

== ENCOUNTER 2022-06-28 01:33 | Emergency (ER) | payer BC ==
[~2022-06-28 01:33] MED LIST changes: -ACET-77 PO; +ACET-78 PO; +ZOLP5TAB PO
[2022-06-28] MEDS ORDERED: NS IV 1000 ML 1,000 ML IV STA (01:43)
[2022-06-28] MEDS ORDERED: ONDANSETRON 4 MG/2 ML (SDV) Z0FRAN IVP ONE (01:45)
--- NOTE | 2022-06-28 01:48 | ED GI ---
General Chief Complaint: Substance Abuse Stated Complaint: DRINKING Source of Information: Patient, Family Exam Limitations: No Limitations History of Present Illness Date Seen by Provider: June 28, 2022 Time Seen by Provider: 01:37 Initial Comments 36yoF with no pertinent past medical history coming in due to vomiting and not feeling well. 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 She thinks she only had 6 shots, her believes she had more around 10. She denies any chest pain, shortness of breath, abdominal pain, diarrhea, focal weakness or numbness, or any other concerns. Allergies and Home Medications Allergies Coded Allergies: No Known Drug Allergies (Unverified , 08/26/18) Patient Home Medication List Home Medication List Reviewed: Yes Acetaminophen (Acetaminophen) 500 Mg Tablet, 1,000 MG PO Q6HR Prescribed by: TIKA CARBONE on 08/28/18 0857 Docusate Sodium (Docusate Sodium) 100 Mg Capsule, 100 MG PO BID Prescribed by: TIKA CARBONE on 08/28/18 0857 Ibuprofen (Ibuprofen) 800 Mg Tablet, 800 MG PO Q8HR Prescribed by: TIKA CARBONE on 08/28/18 0857 Oxycodone Hcl (Oxycodone IR) 5 Mg Tab, 5 MG PO Q6H PRN for PAIN-SEVERE Prescribed by: TIKA CARBONE on 08/28/18 0857 Zolpidem Tartrate (Ambien) 5 Mg Tablet, 5 MG PO nightly Prescribed by: CAS ASTUDILLO on 08/30/18 2204 Review of Systems Review of Systems Constitutional: No fever EENTM: No Symptoms Reported Respiratory: No Symptoms Reported Cardiovascular: No Symptoms Reported Gastrointestinal: See HPI Genitourinary: No Symptoms Reported Musculoskeletal: no symptoms reported Skin: no symptoms reported Psychiatric/Neurological: No Symptoms Reported Endocrine: No Symptoms Reported Hematologic/Lymphatic: No Symptoms Reported Past Wnorxly-Kpzhnm-Wqbrna Hx Patient Social History Substance use?: No Alcohol Use?: Yes Immunizations Up To Date PED Vaccines UTD: Yes Seasonal Allergies Seasonal Allergies: No Past Medical History Surgeries: Yes (knee, lazer surgery) Respiratory: No Cardiac: No Neurological: No Female Reproductive Disorders: Denies Sexually Transmitted Disease: No HIV/AIDS: No Genitourinary: No Gastrointestinal: No Musculoskeletal: Yes (bulging discs/MRI 2011) Endocrine: No HEENT: No Cancer: No Psychosocial: No Integumentary: No Blood Disorders: No Adverse Reaction/Blood Tranf: No Physical Exam Vital Signs Vital Signs - First Documented 06/28/22 01:37 Pulse 105 Resp 18 B/P (MAP) 119/90 (100) Pulse Ox 100 O2 Delivery Room Air Capillary Refill : Height/Weight/BMI Height: 5'9.00" Weight: 250lbs. 0.0oz. 113.324546kj; 41.2 BMI Method:Stated General Appearance: WD/WN, no apparent distress HEENT: PERRL/EOMI, normal ENT inspection, pharynx normal Neck: non-tender, full range of motion, supple, normal inspection Respiratory: chest non-tender, lungs clear, normal breath sounds, no respiratory distress, no accessory muscle use Cardiovascular: regular rate, rhythm, no edema, no murmur Gastrointestinal: normal bowel sounds, non tender, soft; No distended, No guarding, No rebound Extremities: normal range of motion, non-tender, normal inspection, no pedal edema, no calf tenderness, normal capillary refill Neurologic/Psychiatric: no motor/sensory deficits, alert, other (Slightly intox icated clinically with some slurring of speech) Skin: normal color, warm/dry Progress/Results/Core Measures Results/Orders Lab Results Laboratory Tests Test 06/28/22 01:40 Range/Units White Blood Count 10.1 4.3-11.0 10^3/uL Red Blood Count 5.80 H 3.80-5.11 10^6/uL Hemoglobin 13.5 11.5-16.0 g/dL Hematocrit 43 35-52 % Mean Corpuscular Volume 74 L 80-99 fL Mean Corpuscular Hemoglobin 23 L 25-34 pg Mean Corpuscular Hemoglobin Concent 32 32-36 g/dL Red Cell Distribution Width 16.8 H 10.0-14.5 % Platelet Count 441 H 130-400 10^3/uL Mean Platelet Volume 8.7 L 9.0-12.2 fL Immature Granulocyte % (Auto) 0 % Neutrophils (%) (Auto) 44 42-75 % Lymphocytes (%) (Auto) 47 H 12-44 % Monocytes (%) (Auto) 7 0-12 % Eosinophils (%) (Auto) 2 0-10 % Basophils (%) (Auto) 1 0-10 % Neutrophils # (Auto) 4.4 1.8-7.8 10^3/uL Lymphocytes # (Auto) 4.7 H 1.0-4.0 10^3/uL Monocytes # (Auto) 0.7 0.0-1.0 10^3/uL Eosinophils # (Auto) 0.2 0.0-0.3 10^3/uL Basophils # (Auto) 0.1 0.0-0.1 10^3/uL Immature Granulocyte # (Auto) 0.0 0.0-0.1 10^3/uL Sodium Level 143 135-145 MMOL/L Potassium Level 3.6 3.6-5.0 MMOL/L Chloride Level 105 98-107 MMOL/L Carbon Dioxide Level 24 21-32 MMOL/L Anion Gap 14 5-14 MMOL/L Blood Urea Nitrogen 12 7-18 MG/DL Creatinine 0.80 0.60-1.30 MG/DL Estimat Glomerular Filtration Rate 97 BUN/Creatinine Ratio 15 Glucose Level 114 H 70-105 MG/DL Calcium Level 9.8 8.5-10.1 MG/DL Corrected Calcium 9.6 8.5-10.1 MG/DL Total Bilirubin 0.2 0.1-1.0 MG/DL Aspartate Amino Transf (AST/SGOT) 22 5-34 U/L Alanine Aminotransferase (ALT/SGPT) 30 0-55 U/L Alkaline Phosphatase 75 40-136 U/L Total Protein 7.7 6.4-8.2 GM/DL Albumin 4.3 3.2-4.5 GM/DL Lipase 39 8-78 U/L My Orders Orders - GERALD COATES MD Cbc With Automated Diff (06/28/22 01:43) Comprehensive Metabolic Panel (06/28/22 01:43) Lipase (06/28/22 01:43) Ns Iv 1000 Ml (Sodium Chloride 0.9%) (06/28/22 01:43) Ondansetron Injection (Zofran Injectio (06/28/22 01:45) Medications Given in ED Current Medications Medications Dose Ordered Sig/Ethel Route Start Time Stop Time Status Last Admin Dose Admin Ondansetron HCl 4 mg ONCE ONCE IVP 06/28/22 01:45 06/28/22 01:46 DC 06/28/22 01:51 4 MG Vital Signs/I&O 06/28/22 01:37 Pulse 105 Resp 18 B/P (MAP) 119/90 (100) Pulse Ox 100 O2 Delivery Room Air Progress Progress Note : Progress Note 36-year-old female with above history coming in due to vomiting in the setting of alcohol intake. ABCs were intact and vitals were stable on presentation. Physical exam with a soft and nontender abdomen and a nonfocal neuro exam. An IV was placed and she was given a bolus of IV fluids as well as Zofran. Basic labs obtained were significant for a normal hemoglobin, normal white blood cell count, normal creatinine, normal anion gap, normal LFTs, and normal lipase. After IV fluids and Zofran she was feeling better, no longer vomiting, and resting comfortably. No abdominal pain on exam once again, and CT abdomen pel vis not obtained. I believe she is stable for discharge with outpatient follow- up. She was sent home with strict return precautions. Departure Impression Primary Impression: Vomiting in adult Additional Impression: Alcohol use Disposition: HOME, SELF-CARE Condition: Stable Departure-Patient Inst. Decision time for Depature: 02:30 Referrals: GAMALIEL MACHUCA MD (PCP/Family) Primary Care Physician Patient Instructions: Nausea and Vomiting, Adult ED Add. Discharge Instructions: We suspect the way you are feeling is just because of the alcohol. You likely will not feel well tomorrow. A suppository of nausea medicines were sent home with you tonight that you can take if you are in a bad situation. Otherwise a refill of your Zofran was sent to your pharmacy. Take ibuprofen and/or Tylenol as needed for headache tomorrow. Scripts Ondansetron (Ondansetron Odt) 4 Mg Tab.rapdis 4 MG SL Q6H PRN for NAUSEA/VOMITING for 5 Days, #20 TAB Prov: GERALD COATES MD 06/28/22 Work/School Note: Work Release Form Date Seen in the Emergency Department: June 28, 2022 Return to Work: June 29, 2022 Restrictions: No Restrictions GERALD COATES MD June 28, 2022 01:48
[2022-06-28 02:02] LABS: BASOPHILS # (AUTO) 0.1 10^3/uL (0.0-0.1); BASOPHILS % (AUTO) 1 % (0-10); EOSINOPHILS # (AUTO) 0.2 10^3/uL (0.0-0.3); EOSINOPHILS % (AUTO) 2 % (0-10); HEMATOCRIT 43 % (35-52); HEMOGLOBIN 13.5 g/dL (11.5-16.0); LYMPHOCYTES # (AUTO) 4.7 10^3/uL (1.0-4.0); LYMPHOCYTES % (AUTO) 47 % (12-44); MEAN CORPUSCULAR HEMOGLOBIN 23 pg (25-34); MEAN CORPUSCULAR HGB CONC 32 g/dL (32-36); MEAN CORPUSCULAR VOLUME 74 fL (80-99); MEAN PLATELET VOLUME 8.7 fL (9.0-12.2); MONOCYTES # (AUTO) 0.7 10^3/uL (0.0-1.0); MONOCYTES % (AUTO) 7 % (0-12); NEUTROPHILS # (AUTO) 4.4 10^3/uL (1.8-7.8); NEUTROPHILS % (AUTO) 44 % (42-75); PLATELET COUNT 441 10^3/uL (130-400); WHITE BLOOD COUNT 10.1 10^3/uL (4.3-11.0)
[2022-06-28 02:17] LABS: CREATININE SERUM 0.8 MG/DL (0.60-1.30); POTASSIUM 3.6 MMOL/L (3.6-5.0)
[2022-06-28 02:18] LABS: ALBUMIN 4.3 GM/DL (3.2-4.5); BILIRUBIN,TOTAL 0.2 MG/DL (0.1-1.0); CALCIUM 9.8 MG/DL (8.5-10.1); TOTAL PROTEIN 7.7 GM/DL (6.4-8.2)
[2022-06-28] MEDS ORDERED: ONDA4TAB11 SL (02:25)
[2022-06-28] MEDS ORDERED: RX-PHENERGAN 25 MG SUPP PPK#3 PR STA (02:26)
[2022-06-28 02:32] VITALS: BP 119/90
== END 2022-06-28 02:35 | disposition home or self-care (01) ==
LOC: EDUNIT# 01:33 → ER FS 01:36
DX: R11.10 Vomiting, unspecified (principal); F10.90 Alcohol use, unspecified, uncomplicated; Z28.310 Unvaccinated for COVID-19
CPT/HCPCS: 36415; 80053; 83690; 85025; 99281